=== PATIENT | female | born 1995 | race Caucasian/White ===

== ENCOUNTER 2020-07-03 15:54 | Emergency (ER) | payer OTHER, SELFPAY ==
[2020-07-03 16:11] VITALS: BP 121/61; PULSE 79; RESP 18; TEMP 36.7; O2SAT 98; BMI 20.9
[2020-07-03 18:00] VITALS: BP 102/63; PULSE 72; RESP 16; TEMP 36.8; O2SAT 100
[2020-07-03] MEDS: Sodium Phosphate,Mono-Dibasic 133 ML ENEMA PR (18:08)
[2020-07-03 18:19] LABS: OBS Int Ctl Valid YES; OBS1 NEG (NEG)
--- NOTE | 2020-07-03 18:23 | ED.GENADULT ---
HPI - General Adult General Chief complaint: General Medical Stated complaint: blood in stool Time Seen by Provider: 07/03/20 17:45 Source: patient Mode of arrival: ambulatory Limitations: no limitations History of Present Illness HPI narrative: 24-year-old female with a past medical history of IBS, constipation, hemorrhoids here with complaints constipation for the last few days with straining to move her bowels. This morning she noticed blood streaked on her toilet paper when she was wiping after trying to pass bowel movement. She noticed a 2nd occurrence this afternoon. There was no blood in the toilet bowl. No bloody stools. Mild lower abdominal cramping which patient tells me is not unusual for her. She denies any nausea or vomiting. She tells me she has an appointment with her GI doctor tomorrow morning at 08:00. She did mix a 4 oz MiraLax and Gatorade and has been sipping this throughout the day. She is not taking any other medications to move her bowels. Related Data Previous Rx's Medication Instructions Recorded dicyclomine 10 mg PO TID PRN #20 cap 07/03/20 docusate sodium [Colace] 100 mg PO BID #20 cap 07/03/20 omeprazole 20 mg PO DAILY #30 cap 07/03/20 polyethylene glycol 3350 [Miralax] 17 g PO BID #119 g 07/03/20 Allergies Allergy/AdvReac Type Severity Reaction Status Date / Time No Known Allergies Allergy Unverified 02/04/20 18:59 [No Known Allergies*] Review of Systems Review of Systems: Yes all other systems are reviewed and are negative Constitutional: Constitutional: Reports no additional constitutional complaints, Denies body ache(s), Denies chills, Denies fever(s), Denies headache(s) and Denies weakness Eyes: Eyes: Reports no additional eye complaints and Denies change in vision ENT: Reports system reviewed and no additional complaints, except as documented, Denies dizziness, Denies headache(s), Denies nasal congestion, Denies nasal discharge and Denies neck pain Cardiovascular: Cardiovascular: Reports no additional cardiovascular complaints, Denies chest pain, Denies leg edema and Denies dyspnea Respiratory: Respiratory: Reports no additional respiratory complaints, Denies cough and Denies dyspnea Gastrointestinal: Gastrointestinal: Reports no additional gastrointestinal complaints, Reports abdominal pain, Reports constipation, Denies diarrhea, Denies nausea and Denies vomiting Comments: rectal bleeding Genitourinary: Genitourinary: Reports no additional female genitourinary complaints and Denies urinary incontinence Musculoskeletal: Musculoskeletal: Reports no additional musculoskeletal complaints, Denies back pain, Denies arthralgias, Denies joint swelling, Denies neck pain, Denies numbness and Denies tingling Integumentary/Breasts: Skin/Breast: Reports system reviewed and no additional complaints, except as docu and Denies rash Neurologic: Reports system reviewed and no additional complaints, except as documented, Denies Abnormal speech present, Denies dizziness, Denies headache(s), Denies numbness, Denies tingling and Denies weakness PMFSH Past Medical History Attestation statement: The following information was validated with the patient. Source: old records reviewed and nursing notes reviewed Social History Social History Advance Directives: No Advance Directives Information Provided: Yes Physical Exam Vital Signs: Vital Signs: Last Vital Signs Temp 98.2 F 07/03/20 18:00 Pulse 72 07/03/20 18:00 Resp 16 07/03/20 18:00 BP 102/63 07/03/20 18:00 Pulse Ox 100 07/03/20 18:00 Body Mass Index 20.9 Const: General: cooperative, healthy appearing, comfortable and no acute distress Orientation/consciousness: patient oriented x3 Limitations: no limitations HENMT: Head: Yes normal to inspection Ears: hearing grossly normal bilaterally General nose exam: Normal external nose present Face and sinus: Yes normal facial exam Mouth: Normal oral and palatal mucosa present Throat: Yes posterior oropharynx normal Eyes: General: appearance normal, both eyes and all related structures Pupils: Equal, round and reactive pupils present Neck: Neck: Yes normal visual inspection Chest: Chest palpation & inspection: normal inspection of the chest Resp: Effort & Inspection: normal respiratory effort Auscultation: clear to auscultation bilaterally Cardio: Rate: regular rate Rhythm: regular rhythm Peripheral pulses: Peripheral pulses 2+ throughout 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 Inspection: Yes normal to inspection Palpation (GI): Soft to palpation and nontender Auscultation: normal bowel sounds Rectal Exam - Female: visual inspection normal (brown stool), normal sphincter tone, External hemorrhoid(s) present and Internal hemorrhoid(s) present Back/Spine/Pelvis: Thoracic/Lumbar Spine: thoracic and lumbar spine normal to inspection Skin: General skin exam: no rashes or lesions noted Neuro: General: patient oriented x3, no focal motor deficits and normal sensation to monofilament Cranial nerves: Yes Equal, round and reactive pupils present Cognition (Neuro): normal cognition Speech: No Abnormal speech present Gait exam (Neuro): Normal gait present Motor exam (neuro): 5/5 motor strength present throughout Extrem: General: Yes normal to inspection Course Course Course Narrative: 24-year-old female with medical history of IBS, chronic constipation and hemorrhoids her with constipation for the last few days with straining now with blood noted on toilet paper times 24 hours. Rectal exam shows brown stool, heme negative. Hemorrhoids present. Stool in the rectal vault consistent with impaction. Fecal disimpaction done at the bedside. Patient given Fleet enema. 1930-patient had large bowel movement is now feeling much improved. Plan to discharge home with bowel regimen and have her follow-up with her GI doctor. She is also complaining of some epigastric burning and has reflux symptoms which she is requesting a medication for. Repeat abdominal exam benign. No focal tenderness. Eating a sandwich and a cheese stick. Will plan to discharge home with follow-up with GI. Reviewed worrisome signs and symptoms and when to return to the emergency department. Comfortable discharge home. Procedures Procedure Narrative Procedure Narrative: Fecal disimpaction for moderate amount of stools, patient tolerated well Medical Decision Making Lab Data Labs: Lab Results 07/03/20 Range/Units 18:08 Stool Occult Blood NEG (NEG) Discharge Plan Discharge Clinical Impression: Constipation, GERD (gastroesophageal reflux disease) Patient Disposition: Home, Self-Care Instructions: Constipation (ED), Gastroesophageal Reflux Disease (ED) Additional Instructions: Keep your appointment with GI tomorrow Make sure that you taking MiraLax to drink it within 20 minutes in 8 oz of a clear liquid Prescriptions: New polyethylene glycol 3350 [Miralax] 17 gram/dose powder 17 g PO BID Qty: 119 RF: 0 docusate sodium [Colace] 100 mg capsule 100 mg PO BID Qty: 20 RF: 0 omeprazole 20 mg capsule,delayed release(DR/EC) 20 mg PO DAILY Qty: 30 RF: 0 dicyclomine 10 mg capsule 10 mg PO TID PRN (Reason: abdominal pain) Qty: 20 RF: 0 Referrals: Gege Saez PA [Primary Care Provider] - 2 days Interventions: ED Discharge Assessment Last Done: 07/03/20 20:04 Discharge Date/Time: 07/03/20 20:07
--- NOTE | 2020-07-03 19:36 | PC.NURSE ---
pt evacuated bowels succesfully. scant amount of judy red blood, pt reassured. reports some ongoing lower abd crmping
== END 2020-07-03 20:07 | disposition home or self-care (01) ==
PROVIDERS: Nurse Practitioner Family; Emergency Provider Emergency Medicine; PCP Physician Assistant Medical
DX: K21.9 Gastro-esophageal reflux disease without esophagitis (principal); K59.00 Constipation, unspecified; Z79.899 Other long term (current) drug therapy
CPT/HCPCS: 82272; 99284

== ENCOUNTER 2020-10-19 19:43 | Emergency (ER) | payer OTHER, SELFPAY ==
[2020-10-19 21:21] VITALS: BP 102/68; PULSE 118; RESP 18; TEMP 37.4; O2SAT 100; BMI 20.3
--- NOTE | 2020-10-19 22:26 | ED_ITS ---
HPI - General Adult General Chief complaint: General Medical Stated complaint: covid symptoms Time Seen by Provider: 10/19/20 21:05 Source: patient Mode of arrival: ambulatory History of Present Illness HPI narrative: This is a 25-year-old female who presents with sore throat, headache, loss of taste/smell, fevers, nausea, body aches for 2 days. 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 She denies any cough. Related Data Previous Rx's Medication Instructions Recorded dicyclomine 10 mg PO TID PRN #20 cap 07/03/20 docusate sodium [Colace] 100 mg PO BID #20 cap 07/03/20 omeprazole 20 mg PO DAILY #30 cap 07/03/20 polyethylene glycol 3350 [Miralax] 17 g PO BID #119 g 07/03/20 ondansetron HCl [Zofran] 4 mg PO Q8H PRN #7 tab 10/19/20 Allergies Allergy/AdvReac Type Severity Reaction Status Date / Time No Known Allergies Allergy Unverified 02/04/20 18:59 [No Known Allergies*] Review of Systems Review of Systems: Pertinent positives and negatives as stated in HPI 10 point review of systems is otherwise negative. PMFSH Past Medical History Source: nursing notes reviewed Medical History IBS (irritable bowel syndrome) Social History Social History Advance Directives: No Advance Directives Information Provided: Yes Physical Exam Vital Signs: Vital Signs: Last Vital Signs Temp 99.3 F 10/19/20 21: Pulse 118 H 10/19/20 21:21 Resp 18 10/19/20 21:21 BP 102/68 10/19/20 21:21 Pulse Ox 100 10/19/20 21:21 Body Mass Index 20.3 VITAL SIGNS: Reviewed. GENERAL: Well developed, well nourished, in no acute distress. HEAD: Normocephalic/atraumatic EYES: PERRLA, EOMI NOSE: Nares patent bilateral OROPHARYNX: no oral lesions noted, posterior pharynx clear but noted tonsillar erythema NECK: Supple, no adenopathy LUNGS: Normal breath sounds. No adventitious sounds or accessory muscle use. SpO2<100> CARDIOVASCULAR: Regular rate and rhythm without noted murmurs ABDOMEN: Soft, non-tender, non-distended with bowel sounds. SKIN: Inspection of the skin reveals no rashes NEUROLOGIC: Alert and oriented x 4. Course Course Course Narrative: 25-year-old female with history and clinical presentation consistent with viral syndrome, COVID-19 and rapid strep are both negative. Patient was counseled that this does not mean that she is COVID-19 negative and that she should proceed to get a repeat testing in 3-4 days. Otherwise, she was discharged with instructions to increase oral hydration and alternate [id number] Tylenol/ibuprofen and will be provided with a prescription for Zofran to treat the nausea. Medical Decision Making Lab Data Labs: Lab Results 10/19/20 10/19/20 Range/Units 22:16 22:16 COVID-19 ([facility]) Negative (Negative) COVID-19 Clin Com See Note S. pyogenes GrpA KORY Negative (Negative) Discharge Plan Discharge Clinical Impression: Acute viral syndrome Patient Disposition: Home, Self-Care Instructions: Viral Syndrome (ED) Additional Instructions: 1. Increase oral hydration especially with water. 2. Utilize [id number] Tylenol/ibuprofen as directed on the outside packaging to manage your body aches and temperatures greater than 100.4. 3. Follow-up with your primary care provider in 2-3 days for re-evaluation. 4. You should repeat your COVID-19 testing at an outpatient facility in 3-4 days. Return to the ER for any acute worsening of your symptoms. Prescriptions: New ondansetron HCl [Zofran] 4 mg tablet 4 mg PO Q8H PRN (Reason: nausea and vomiting) Qty: 7 RF: 0 No Action polyethylene glycol 3350 [Miralax] 17 gram/dose powder 17 g PO BID Qty: 119 RF: 0 docusate sodium [Colace] 100 mg capsule 100 mg PO BID Qty: 20 RF: 0 omeprazole 20 mg capsule,delayed release(DR/EC) 20 mg PO DAILY Qty: 30 RF: 0 dicyclomine 10 mg capsule 10 mg PO TID PRN (Reason: abdominal pain) Qty: 20 RF: 0 Referrals: Physician,Unknown [Primary Care Provider] - 2 days
[2020-10-19 22:38] LABS: IDNOW Serial# 9DD0AD1C; Strep A Nucleic Acid Negative (Negative)
[2020-10-19 22:41] LABS: COVID-19 Test Negative (Negative)
[2020-10-19] MEDS: Ibuprofen 400 MG TABLET PO (23:24)
[2020-10-19] MEDS: Acetaminophen 325 MG TABLET 975 MG PO (23:24)
== END 2020-10-19 23:44 | disposition home or self-care (01) ==
PROVIDERS: Emergency Provider Student in an Organized Health Care Education/Training Program
DX: B34.9 Viral infection, unspecified (principal); Z20.822 Contact with and (suspected) exposure to COVID-19; R51.9 Headache, unspecified; R50.9 Fever, unspecified
CPT/HCPCS: 36415; 87635; 87651; 99283

== ENCOUNTER 2021-12-04 06:51 | Emergency (ER) | payer OTHER, SELFPAY ==
[2021-12-04 07:14] LABS: MANUAL DIFF FLAG NO
[2021-12-04 07:17] LABS: Basophils Percent Auto 0.3 % (0-2); Eosinophils Absolute Auto 0.1 X10*3/uL (0.0-0.4); Eosinophils Percent Auto 0.8 % (0-4); Hematocrit 40.2 % (37.0-47.0); Hemoglobin 13.2 g/dl (12.0-16.0); Imm Gran Abs Auto 0.03 X10*3/uL (0.00-0.03); Imm Gran Pct Auto 0.5 % (0.0-0.4); Lymphocytes Absolute Auto 1.1 X10*3/uL (1.2-4.9); Lymphocytes Percent Auto 16.3 % (20-40); Mean Corpuscular HGB Conc 32.8 g/dl (31.0-35.0); Mean Corpuscular Volume 85.2 fL (80.0-98.0); Mean Platelet Volume 11.3 fL (9.4-12.3); Monocytes Absolute Auto 0.5 X10*3/uL (0.1-1.2); Neutrophils Absolute Auto 4.9 x10*3/uL (2.0-8.3); Neutrophils Percent Auto 75.1 % (45-73); Platelet Count 190 X10*3/uL (160-400); Red Blood Count 4.72 X10*6/uL (4.20-5.50); Red Cell Distribution Width 12.6 % (11.0-16.0); White Blood Count 6.5 X10*3/uL (4.8-10.8)
[2021-12-04 07:20] LABS: UPreg QC Valid YES; Urine Pregnancy NEGATIVE (NEGATIVE)
[2021-12-04 07:22] LABS: Appearance Urine HAZY; Color Urine YELLOW; Glucose Urine UA NEG (NEG); Leukocyte Esterase Urine TRACE (NEG); Nitrite Urine NEG (NEG); Specific Gravity - Urine 1.025 (1.005-1.025); UACC Culture Trigger NO; Urine Blood TRACE (NEG); Urine Ketones 5 MG/DL (NEG); Urine Protein NEG (NEG-TRACE)
[2021-12-04 07:32] LABS: COVID-19 Test Negative (Negative)
[2021-12-04 07:34] LABS: Bacteria Urine 4+ /LPF; RBC Urine 0-2 /HPF (0); Squamous Epithelial Cell Urine 4+ /LPF
[2021-12-04 07:39] LABS: Alanine Aminotransferase 13 U/L (0-31); Albumin Level 4.7 g/dL (3.5-5.0); Alkaline Phosphatase 71 U/L (39-117); Anion Gap 13 (12-20); Aspartate Amino Transferase 14 U/L (5-31); Bilirubin Total 1.3 mg/dL (0.0-1.0); Blood Urea Nitrogen 6 mg/dL (9-16); Calcium 9.6 mg/dL (8.4-10.2); Carbon Dioxide 26 mmol/L (22-29); Chloride 106 mmol/L (96-108); Estimated Glomerular Filt Rate > 60; Glucose Random 99 mg/dL (60-115); Potassium 3.9 mmol/L (3.3-5.1); Sodium 141 mmol/L (135-145); Total Protein 7.5 g/dL (6.5-8.0)
[2021-12-04 07:41] VITALS: BP 116/83; PULSE 96; RESP 18; TEMP 36.8; O2SAT 99; BMI 21.9
--- NOTE | 2021-12-04 08:44 | ED.GENADULT ---
HPI - General Adult General Chief complaint: General Medical Stated complaint: dehydrated, can't eat, nausea Time Seen by Provider: 12/04/21 07:37 Source: patient Mode of arrival: ambulatory Limitations: no limitations History of Present Illness HPI narrative: 26-year-old female presents to emergency department with diarrhea in the morning and at night. She states she has to 3 episodes tonight and to 3 episodes in the morning patient states goes away during the day she did have 1 episode of nausea this morning but no vomiting and fevers chills cough shortness of breath states she has never had this problem in the past. Related Data Previous Rx's Medication Instructions Recorded dicyclomine 10 mg capsule 10 mg PO TID PRN abdominal pain 07/03/20 #20 caps docusate sodium 100 mg capsule 100 mg PO BID #20 caps 07/03/20 (Colace) omeprazole 20 mg capsule,delayed 20 mg PO DAILY #30 caps 07/03/20 release polyethylene glycol 3350 17 17 g PO BID #119 grams 07/03/20 gram/dose oral powder (Miralax) ondansetron HCl 4 mg tablet 4 mg PO Q8H PRN nausea and 10/19/20 (Zofran) vomiting #7 tabs Allergies Allergy/AdvReac Type Severity Reaction Status Date / Time No Known Allergies Allergy Unverified 02/04/20 18:59 [No Known Allergies*] Review of Systems Review of Systems: Review of systems: General: Patient denies any fever chills recent illness or falls Musculoskeletal: Denies back pain or body aches or other injuries HEENT: denies headache, runny nose, ear pain Respiratory: denies shortness of breath, cough Cardiovascular: no chest pain or palpitations : denies dysuria, frequency Abdomen: no nausea vomiting denies abdominal pain Extremities: no swelling, no pain Skin: no diaphoresis Yes all other systems are reviewed and are negative PMFSH Past Medical History Attestation statement: The following information was validated with the patient. Medical History IBS (irritable bowel syndrome) Social History Social History Advance Directives: No Advance Directives Information Provided: Yes Physical Exam ED Vital Signs: Vital Signs - 24 hr 12/04/21 07:41 Temperature 98.3 F Pulse Rate 96 Respiratory Rate 18 Blood Pressure 116/83 Pulse Oximetry 99 Oxygen Delivery Method Aerosol Mask BMI result Body Mass Index 21.9 General: Well-appearing well-nourished in no signs of distress HEENT: Normocephalic atraumatic? Neck: No signs of JVD, no masses no tenderness or lymphadenopathy Cardiovascular: Regular rate and rhythm Respiratory: Clear to auscultation bilaterally Abdomen: Soft nontender no masses Extremities: Normal pedal pulses no signs of edema Skin: Dry warm no rashes Back: No tenderness full ROM Course Course Course Narrative: 938 I explained to the patient about 09:00 o'clock the labs are back and normal nursing has really backed up and staffed are unable to get in there to start an IV given IV Zofran I did offer to give her oral Zofran at this time which the nurse that she did not look like her to give to patient. And will try to orally hydrate the patient. Medical Decision Making MDM Narrative Medical decision making narrative: Patient is concerned that she may be dehydrated I gave patient a fluid of the patient some Zofran and I will check labs. She has not been confirmed stream she has no recent antibiotic use recent think this is related to anything surgical either 1018 Patient given a liter of fluid and zofran feeling much better. I will send home. Lab Data Result diagrams: 12/04/21 07:08 12/04/21 07:08 Labs: Lab Results 12/04/21 12/04/21 12/04/21 Range/Units 07:08 07:08 07:08 WBC 6.5 (4.8-10.8) X10*3/uL RBC 4.72 (4.20-5.50) X10*6/uL Hgb 13.2 (12.0-16.0) g/dl Hct 40.2 (37.0-47.0) % MCV 85.2 (80.0-98.0) fL MCH 28.0 (27.0-33.0) pg MCHC 32.8 (31.0-35.0) g/dl RDW 12.6 (11.0-16.0) % Plt Count 190 (160-400) X10*3/uL MPV 11.3 (9.4-12.3) fL Immature Gran % (Auto) 0.5 H (0.0-0.4) % Neut % (Auto) 75.1 H (45-73) % Lymph % (Auto) 16.3 L (20-40) % [place] % (Auto) 7.0 (2-11) % Eos % (Auto) 0.8 (0-4) % Baso % (Auto) 0.3 (0-2) % Lymph # (Auto) 1.1 L (1.2-4.9) X10*3/uL [place] # (Auto) 0.5 (0.1-1.2) X10*3/uL Eos # (Auto) 0.1 (0.0-0.4) X10*3/uL Baso # (Auto) 0.0 (0.0-0.2) X10*3/uL Abs Immat Gran (auto) 0.03 (0.00-0.03) X10*3/uL Absolute Neuts (auto) 4.9 (2.0-8.3) x10*3/uL Absolute Nucleated RBC 0.000 (0.0-0.012) X10*3/uL Nucleated RBC % (auto) 0.0 (0.0-0.2) /100WBC Sodium 141 (135-145) mmol/L Potassium 3.9 (3.3-5.1) mmol/L Chloride 106 (96-108) mmol/L Carbon Dioxide 26 (22-29) mmol/L Anion Gap 13 (12-20) BUN 6 L (9-16) mg/dL Creatinine 0.74 (0.5-1.4) mg/dL Estim Creat Clear Calc TNP Estimated GFR > 60 Random Glucose 99 (60-115) mg/dL Calcium 9.6 (8.4-10.2) mg/dL Total Bilirubin 1.3 H (0.0-1.0) mg/dL AST 14 (5-31) U/L ALT 13 (0-31) U/L Alkaline Phosphatase 71 (39-117) U/L Total Protein 7.5 (6.5-8.0) g/dL Albumin 4.7 (3.5-5.0) g/dL Urine Color Urine Appearance Urine pH (5.0-8.0) Ur Specific [place] (1.005-1.025) Urine Protein (NEG-TRACE) MG/DL Urine Glucose (UA) (NEG) MG/DL Urine Ketones (NEG) MG/DL Urine Blood (NEG) Urine Nitrite (NEG) Ur Leukocyte Esterase (NEG) Urine RBC (0) /HPF Urine WBC (0-4) /HPF Ur Squamous Epith Cells /LPF Urine Bacteria /LPF Urine Test (NEGATIVE) COVID-19 ([facility]) Negative (Negative) COVID-19 Clin Com See Note 12/04/21 12/04/21 Range/Units 07:08 07:08 WBC (4.8-10.8) X10*3/uL RBC (4.20-5.50) X10*6/uL Hgb (12.0-16.0) g/dl Hct (37.0-47.0) % MCV (80.0-98.0) fL MCH (27.0-33.0) pg MCHC (31.0-35.0) g/dl RDW (11.0-16.0) % Plt Count (160-400) X10*3/uL MPV (9.4-12.3) fL Immature Gran % (Auto) (0.0-0.4) % Neut % (Auto) (45-73) % Lymph % (Auto) (20-40) % [place] % (Auto) (2-11) % Eos % (Auto) (0-4) % Baso % (Auto) (0-2) % Lymph # (Auto) (1.2-4.9) X10*3/uL [place] # (Auto) (0.1-1.2) X10*3/uL Eos # (Auto) (0.0-0.4) X10*3/uL Baso # (Auto) (0.0-0.2) X10*3/uL Abs Immat Gran (auto) (0.00-0.03) X10*3/uL Absolute Neuts (auto) (2.0-8.3) x10*3/uL Absolute Nucleated RBC (0.0-0.012) X10*3/uL Nucleated RBC % (auto) (0.0-0.2) /100WBC Sodium (135-145) mmol/L Potassium (3.3-5.1) mmol/L Chloride (96-108) mmol/L Carbon Dioxide (22-29) mmol/L Anion Gap (12-20) BUN (9-16) mg/dL Creatinine (0.5-1.4) mg/dL Estim Creat Clear Calc Estimated GFR Random Glucose (60-115) mg/dL Calcium (8.4-10.2) mg/dL Total Bilirubin (0.0-1.0) mg/dL AST (5-31) U/L ALT (0-31) U/L Alkaline Phosphatase (39-117) U/L Total Protein (6.5-8.0) g/dL Albumin (3.5-5.0) g/dL Urine Color YELLOW Urine Appearance HAZY Urine pH 6.0 (5.0-8.0) Ur Specific [place] 1.025 (1.005-1.025) Urine Protein NEG (NEG-TRACE) MG/DL Urine Glucose (UA) NEG (NEG) MG/DL Urine Ketones 5 (NEG) MG/DL Urine Blood TRACE (NEG) Urine Nitrite NEG (NEG) Ur Leukocyte Esterase TRACE H (NEG) Urine RBC 0-2 (0) /HPF Urine WBC 1-4 (0-4) /HPF Ur Squamous Epith Cells 4+ /LPF Urine Bacteria 4+ /LPF Urine Test NEGATIVE (NEGATIVE) COVID-19 ([facility]) (Negative) COVID-19 Clin Com Discharge Plan Discharge Clinical Impression: Diarrhea, Dehydration Patient Disposition: Home, Self-Care Instructions: Dehydration (ED), Acute Diarrhea (ED) Additional Instructions: Please call follow-up with her doctor if you have any other concerns please do not hesitate to come back to the emergency department. Prescriptions: No Action ondansetron HCl [Zofran] 4 mg tablet 4 mg PO Q8H PRN (Reason: nausea and vomiting) Qty: 7 0RF polyethylene glycol 3350 [Miralax] 17 gram/dose powder 17 g PO BID Qty: 119 0RF docusate sodium [Colace] 100 mg capsule 100 mg PO BID Qty: 20 0RF omeprazole 20 mg capsule,delayed release(DR/EC) 20 mg PO DAILY Qty: 30 0RF dicyclomine 10 mg capsule 10 mg PO TID PRN (Reason: abdominal pain) Qty: 20 0RF
[2021-12-04] MEDS: Ondansetron ODT 4 MG TAB.RAPDIS TRANSLINGU (09:46)
[2021-12-04] MEDS: 0.9 % Sodium Chloride 1,000 ML 999 ML IV (09:56)
[2021-12-04 10:19] LABS: Alanine Aminotransferase 13 U/L (0-31); Albumin Level 4.7 g/dL (3.5-5.0); Alkaline Phosphatase 73 U/L (39-117); Anion Gap 14 (12-20); Aspartate Amino Transferase 17 U/L (5-31); Bilirubin Direct 0.5 mg/dL (0.0-0.5); Bilirubin Total 1.2 mg/dL (0.0-1.0); Blood Urea Nitrogen 7 mg/dL (9-16); Calcium 9.4 mg/dL (8.4-10.2); Carbon Dioxide 23 mmol/L (22-29); Chloride 107 mmol/L (96-108); Creatinine Clr Calc Pharmacy 121.1; Estimated Glomerular Filt Rate > 60; Glucose Random 95 mg/dL (60-115); Lipase 15 U/L (8-78); Sodium 140 mmol/L (135-145); Total Protein 7.4 g/dL (6.5-8.0)
--- NOTE | 2021-12-04 11:18 | PC.NURSE ---
PT ATE CRACKERS AND DRANK GINGERALE. NO VOMITING NO NAUSEA AT THIS TIME.
== END 2021-12-04 11:19 | disposition home or self-care (01) ==
PROVIDERS: Emergency Provider Student in an Organized Health Care Education/Training Program
DX: E86.0 Dehydration (principal); R19.7 Diarrhea, unspecified; Z20.822 Contact with and (suspected) exposure to COVID-19; Z79.899 Other long term (current) drug therapy
CPT/HCPCS: 36415; 80048; 80053; 80076; 81001; 81025; 83690; 85025; 87635; 96361; 96374; 99283; 99284

== ENCOUNTER 2023-02-07 10:59 | Emergency (ER) | payer OTHER, SELFPAY ==
--- NOTE | 2023-02-07 11:27 | ED.GENADULT ---
HPI - General Adult General Chief complaint: General Medical Stated complaint: 32 wks preg sore throat congestion Time Seen by Provider: 02/07/23 14:16 Source: patient Mode of arrival: ambulatory Limitations: no limitations History of Present Illness HPI narrative: Patient is a 27-year-old female 33 weeks , SARAY 03/29 complaining of sore throat, right sided headache since yesterday, decreased appetite. Denies headache worst at onset, denies worst headache of life. Took 1g Tylenol last night with some improvement. States called PCP who referred her to the ED given that she is . Also has right ear pain. Reports normal movement. Denies cough but reports urge. Denies fever but reports hot flashes/sweating since yesterday. Denies any nausea, vomiting or diarrhea. complaint: sore throat Onset (ago): day(s) Severity: moderate Quality: burning Pain Consistency: constant Relieving factors: medication Exacerbating factors: none Associated symptoms: headaches Treatments prior to arrival: other (Tylenol) Related Data Previous Rx's Medication Instructions Recorded dicyclomine 10 mg capsule 10 mg PO TID PRN abdominal pain 07/03/20 #20 caps docusate sodium 100 mg capsule 100 mg PO BID #20 caps 07/03/20 (Colace) omeprazole 20 mg capsule,delayed 20 mg PO DAILY #30 caps 07/03/20 release polyethylene glycol 3350 17 17 g PO BID #119 grams 07/03/20 gram/dose oral powder (Miralax) ondansetron HCl 4 mg tablet 4 mg PO Q8H PRN nausea and 10/19/20 (Zofran) vomiting #7 tabs Allergies Allergy/AdvReac Type Severity Reaction Status Date / Time No Known Allergies Allergy Unverified 02/04/20 18:59 [No Known Allergies*] Review of Systems Review of Systems: As per HPI. Yes all other systems are reviewed and are negative Constitutional: Constitutional: Reports as per HPI PMF Past Medical History Medical History IBS (irritable bowel syndrome) Social History Social History Advance Directives: No Physical Exam ED Vital Signs: Vital Signs - 24 hr 02/07/23 11:28 Temperature 98 F Pulse Rate 87 Respiratory Rate 18 Blood Pressure 111/60 Pulse Oximetry 97 BMI result Body Mass Index 28.5 Vital signs have been reviewed and appear to be correct. Blood pressure normal. Heart rate normal. Respiratory rate normal. Temperature normal. Oxygen saturation normal. Const General: cooperative, healthy appearing and no acute distress Orientation/consciousness: oriented to person, oriented to place, oriented to time and patient oriented x3 Limitations: no limitations HENMT Head: Yes normocephalic and Yes atraumatic Ears: external ears normal, TM's normal bilaterally and EAC's normal General nose exam: Normal external nose present Face and sinus: Yes face symmetric Mouth: oropharynx normal and moist mucous membranes Throat: Yes posterior oropharynx normal, Yes tonsils normal, Yes uvula midline and No uvular edema Eyes Pupils: Equal, round and reactive pupils present Neck Neck: Yes normal visual inspection and Yes supple Resp Effort & Inspection: normal respiratory effort and able to speak in complete sentences Auscultation: clear to auscultation bilaterally Cardio Rate: regular rate Rhythm: regular rhythm Heart sounds: S1 normal heart sound present and S2 normal heart sound present GI Palpation (GI): Soft to palpation and nontender Auscultation: normoactive bowel sounds General: Yes no CVA tenderness Back/Spine/Pelvis Back: no CVA tenderness Skin General skin exam: elasticity normal and turgor normal Neuro General: oriented to person, oriented to place, oriented to time, patient oriented x3, moves all extremities, no focal motor deficits and CN's II-XI intact bilaterally Cranial nerves: Yes Equal, round and reactive pupils present Cognition (Neuro): normal cognition Extrem General: Yes full ROM, Yes no pedal edema and Yes no calf tenderness Psych Mental Status: mental status grossly normal Affect: normal affect Thought process: Normal thought process present Medical Decision Making Medical Decision Making MDM Narrative: Patient is a 27-year-old female 33 weeks , SARAY 03/29 complaining of sore throat, right sided headache since yesterday, decreased appetite. On exam patient is awake, A+Ox3, VS WNL, afebrile, normal neurological exam without focal deficits, TMs normal bilaterally, posterior oropharynx normal, no erythema, edema, or exudate, lungs clear throughout, HR 145 bpm via Doppler with visible movement. Given reported symptoms and physical exam findings, initial differential includes strep pharyngitis, Covid, flu, other viral illness. Swabs for strep, flu and Covid all negative and patient updated on results. Discussed with patient that symptoms are likely related to viral infection. Patient reports that symptoms have improved while in the emergency department. Patient also states that she was able to contact her PCP who has scheduled her for an appointment next week. Advised patient to continue utilizing Tylenol, can also gargle with warm salt water, should ensure adequate rest and adequate fluid intake. Instructed patient to follow-up with OBGYN as well. Return precautions discussed. Patient verbalized understanding of and agreement with plan. Differential Diagnosis Differential Diagnoses: The differential diagnosis associated with the presentation includes As per [facility]. Lab Data [facility] Lab Attestation statement: I reviewed the patient's lab results. As per [facility]. Labs: Lab Results 02/07/23 Range/Units 11:38 COVID-19 ([facility]) Negative (Negative) COVID-19 Clin Com See Note Influenza Type A ([facility]) Negative (Negative) Influenza Type B ([facility]) Negative (Negative) Influenza A & B Note See Note S. pyogenes GrpA [facility] Negative (Negative) External Record Review External record reviewed: Inpatient record, Office record and Outpatient record Discharge Plan Discharge Clinical Impression: Viral illness Patient Disposition: Home, Self-Care Instructions: Viral Syndrome (ED) Additional Instructions: You were evaluated in the emergency department today for sore throat, headache and ear pain. Your Covid, flu, and strep tests were all negative. Your symptoms are likely related to a viral illness which will resolve on its own with time and rest. You should ensure adequate fluid intake, and can use Tylenol 650 mg every 6 hours as needed for fever or discomfort. Please follow-up with your primary care provider this week. Return to the emergency department if you develop difficulty swallowing, are unable to swallow your own saliva, chest pain, vision changes, shortness of breath, decreased movement, fever 100.4? F or greater or any other concerning symptoms. Please follow up with your [facility] as well. Prescriptions: No Action ondansetron HCl [Zofran] 4 mg tablet 4 mg PO Q8H PRN (Reason: nausea and vomiting) Qty: 7 0RF polyethylene glycol 3350 [Miralax] 17 gram/dose powder 17 g PO BID Qty: 119 0RF docusate sodium [Colace] 100 mg capsule 100 mg PO BID Qty: 20 0RF omeprazole 20 mg capsule,delayed release(DR/EC) 20 mg PO DAILY Qty: 30 0RF dicyclomine 10 mg capsule 10 mg PO TID PRN (Reason: abdominal pain) Qty: 20 0RF
[2023-02-07 11:28] VITALS: BP 111/60; PULSE 87; RESP 18; TEMP 36.6; O2SAT 97; BMI 28.5
[2023-02-07 12:10] LABS: COVID-19 Test Negative (Negative); IDNOW Serial# 9DB6401D; IDNOW Serial# BCCEAD1C; Influenza A Negative (Negative); Influenza B2 Negative (Negative)
[2023-02-07 12:12] LABS: IDNOW Serial# 08D9AD1C; Strep A Nucleic Acid Negative (Negative)
== END 2023-02-07 15:03 | disposition home or self-care (01) ==
PROVIDERS: Registered Nurse Emergency; Emergency Provider Emergency Medicine; PCP Internal Medicine
DX: O98.513 Other viral diseases complicating pregnancy, third trimester (principal); B34.9 Viral infection, unspecified; Z3A.33 33 weeks gestation of pregnancy; Z20.822 Contact with and (suspected) exposure to COVID-19
CPT/HCPCS: 87502; 87635; 87651; 99282; 99283